=== PATIENT | female | born 1995 | race Caucasian/White ===

== ENCOUNTER 2018-08-25 00:13 | Emergency (ER) | payer MEDICAID ==
[~2018-08-25] VITALS: Ht 165.1 cm; Wt 108.4 kg
[~2018-08-25 00:13] MED LIST: ACHD5005 PO; DOCU100C37 PO; IBUP-1773 PO; LEVO150T PO; PNV91TAB3 PO
[2018-08-25 00:48] LABS: BILIRUBIN,URINE 3+ (NEGATIVE); CLARITY,URINE SLIGHTLY CLOUDY; COLOR,URINE AMBER; GLUCOSE, URINE (UA) NEGATIVE (NEGATIVE); KETONES,URINE NEGATIVE (NEGATIVE); LEUKOCYTE ESTERASE ,URINE 1+ (NEGATIVE); NITRITE,URINE NEGATIVE (NEGATIVE); PH,URINE 5 (5-9); PROTEIN,URINE 4+ (NEGATIVE); UROBILINOGEN,URINE 12 MG/DL (NORMAL)
[2018-08-25 01:00] LABS: BACTERIA,URINE MODERATE /HPF; RBC,URINE 0-2 /HPF; WBC,URINE 0-2 /HPF
[2018-08-25] MEDS ORDERED: LACTATED RINGERS 1,000 ML IV ONE (01:29)
[2018-08-25] MEDS ORDERED: KETOROLAC 30 MG/ML VIAL IVP STA (01:29)
[2018-08-25] MEDS ORDERED: ONDANSETRON 4 MG/2 ML (SDV) Z0FRAN IVP ONE (01:30)
[2018-08-25 01:49] LABS: BASOPHILS % (AUTO) 1 % (0-10); EOSINOPHILS # (AUTO) 0.1 10^3/uL (0.0-0.3); EOSINOPHILS % (AUTO) 2 % (0-10); HEMATOCRIT 41 % (35-52); HEMOGLOBIN 13.8 G/DL (11.5-16.0); LYMPHOCYTES % (AUTO) 17 % (12-44); MEAN CORPUSCULAR HEMOGLOBIN 29 PG (25-34); MEAN CORPUSCULAR HGB CONC 33 G/DL (32-36); MEAN CORPUSCULAR VOLUME 85 FL (80-99); MEAN PLATELET VOLUME 12.6 FL (7.4-10.4); MONOCYTES # (AUTO) 0.4 X 10^3 (0.0-1.0); MONOCYTES % (AUTO) 7 % (0-12); NEUTROPHILS # (AUTO) 4.3 X 10^3 (1.8-7.8); NEUTROPHILS % (AUTO) 74 % (42-75); PLATELET COUNT 225 10^3/uL (130-400); RED BLOOD COUNT 4.85 10^6/uL (4.35-5.85); RED CELL DISTRIBUTION WIDTH 13.8 % (10.0-14.5); WHITE BLOOD COUNT 5.9 10^3/uL (4.3-11.0)
[2018-08-25 02:00] VITALS: BP 112/89
[2018-08-25 02:13] LABS: ALANINE AMINOTRANSFERASE 1170 U/L (0-55); ALBUMIN 4.1 GM/DL (3.2-4.5); ALKALINE PHOSPHATASE 164 U/L (40-136); AMYLASE 33 U/L (25-125); BILIRUBIN,TOTAL 4.3 MG/DL (0.1-1.0); BUN/CREATININE RATIO 9; CALCIUM 9.2 MG/DL (8.5-10.1); CARBON DIOXIDE 23 MMOL/L (21-32); CHLORIDE 104 MMOL/L (98-107); CREATININE SERUM 0.77 MG/DL (0.60-1.30); GFR ESTIMATED > 60; GLUCOSE 95 MG/DL (70-105); LIPASE 20 U/L (8-78); POTASSIUM 3.6 MMOL/L (3.6-5.0); SODIUM 139 MMOL/L (135-145); TOTAL PROTEIN 7.1 GM/DL (6.4-8.2)
[2018-08-25] MEDS ORDERED: NS 100 ML (IVPB) BAG IV ONE (02:30)
[2018-08-25] MEDS ORDERED: RECEIVED CONTRAST (Hold Metformin) IV SCH (02:30)
[2018-08-25] MEDS ORDERED: IOHEXOL 350 MG/ML 100 ML (OMNIPAQUE 350) VIAL IV ONE (02:30)
[2018-08-25] MEDS ORDERED: fentaNYL INJECTION 100 MCG/2 ML AMP IVP STA (03:30)
[2018-08-25] MEDS ORDERED: PIPERACILLIN/TAZO 4.5 GM VIAL (ZOSYN) IV ONE (03:41)
[2018-08-25] MEDS ORDERED: PIPERACILLIN SODIUM/TAZOBACTAM 4.5 GM in NS (IVPB) 100 ML IV ONE (03:45)
[2018-08-25 04:06] VITALS: BP 135/91
--- NOTE | 2018-08-25 04:14 | ED Abdominal Pain ---
General Chief Complaint: Back Problems Stated Complaint: BACK PAIN Nursing Triage Note: lower back pain Sepsis Screen: No Definite Risk Source of Information: Patient Exam Limitations: No Limitations History of Present Illness Date Seen by Provider: Aug 25, 2018 Time Seen by Provider: 00:25 Initial Comments PT ARRIVES VIA POV FROM HOME PT STATES SHE BEGAN HAVING SEVERE EPIGASTRIC PAIN THAT RADIATED THROUGH TO HER BACK STATES TODAY, THE PAIN HAS BEEN MOSTLY IN HER MID BACK PAIN HAS BEEN CONSTANT DULL ACHE, BUT HAS BECOME SEVERE IN THE LAST 2 HOURS STATES SHE HAS BEEN SWEATING AND SHAKING DUE TO PAIN NOTHING WORSENS PAIN PAIN EASED A LITTLE WITH HEAT, ALSO TOOK 1 LEFT-OVER HYDROCODONE TONIGHT WHICH HELPED A LITTLE, THEN PAIN CAME BACK AND IS WORSE STATES SHE HAS BEEN DRINKING ALOT OF WATER, BUT SINCE YESTERDAY, HER URINE HAS BEEN VERY DARK AND DOES NOT THINK SHE IS URINATING MUCH NORMAL STATES SHE BEGAN HAVING NAUSEA/VOMITING--DRY HEAVES SINCE 0200 YESTERDAY STATES SHE HAS CONTINUED TO EAT, AND LAST ATE 1-2 HOURS AGO. HAS NOT CHECKED TEMP AT HOME NO DIARRHEA, HAS BEEN CONSTIPATED--HAD TINY BM YESTERDAY AND ANOTHER TINY BM TODAY. STATES SHE STARTED GOING TO THE GYM A COUPLE OF MONTHS AGO, BUT NO NEW ACTIVITIES, AND CONSISTS MOSTLY OF DOING TREADMILL. NO LIFTING, ETC. STATES SHE HAD A GASTRIC SLEEVE BARIATRIC SURGERY LAST DECEMBER 2017--WEIGHED 310 LBS AT THAT TIME. HAS LOST NEARLY 100 LBS SINCE THEN. PCP: DR. Clotilde BRYSON. LAST APPOINTMENT WAS 02/2018 Allergies and Home Medications Allergies Coded Allergies: No Known Drug Allergies (Unverified , 03/09/16) Home Medications Levothyroxine Sodium 150 Mcg Tablet, 150 MCG PO DAILY, (Reported) Pnv95/Ferrous Fumarate/FA 1 Each Tablet, 1 EACH PO DAILY, (Reported) Patient Home Medication List Home Medication List Reviewed: Yes Review of Systems Review of Systems Constitutional: see HPI; No chills; diaphoresis; No fever Respiratory: No Symptoms Reported Cardiovascular: No Symptoms Reported Gastrointestinal: See HPI, Abdominal Pain, Constipated, Nausea, Poor Appetite, Vomiting Genitourinary: See HPI, Flank Pain Musculoskeletal: see HPI, back pain Skin: no symptoms reported Psychiatric/Neurological: No Symptoms Reported Endocrine: No Symptoms Reported Hematologic/Lymphatic: No Symptoms Reported Past Zqjtimd-[id number]-Hkcqzs Hx Patient Social History Alcohol Use: Denies Use Recreational Drug Use: No Smoking Status: Never a Smoker Recent Foreign Travel: No Contact w/Someone Who Travel: No Recent Infectious Disease Expo: No Recent Hopitalizations: No Immunizations Up To Date Tetanus Booster (TDap): Unknown Seasonal Allergies Seasonal Allergies: No Past Medical History Surgeries: Yes (RIGHT ANKLE FX/ORIF; X 2; GASTRIC SLEEVE 12/2017; ORAL SURGERY) Abdominal, Appendectomy, Section, Orthopedic Respiratory: Yes (HX OF ASTHMA A CHILD) Asthma Cardiac: No Neurological: No : No Last Menstrual Period: Aug 12, 2018 Reproductive Disorders: No Female Reproductive Disorders: Denies Sexually Transmitted Disease: No HIV/AIDS: No Genitourinary: No Gastrointestinal: No Musculoskeletal: Yes (LOWER BACK PAIN) Chronic Back Pain Endocrine: Yes Hypothyroidsim Loss of Vision: Denies Cancer: No Psychosocial: Yes Depression Integumentary: Yes Eczema Blood Disorders: No Adverse Reaction/Blood Tranf: No (N/A) Family Medical History BREAST CANCER 19 MOTHER Diabetes mellitus 19 FATHER No Pertinent Family Hx Physical Exam Vital Signs Vital Signs - First Documented 08/25/18 00:20 Temp 98.0 Pulse 90 Resp 16 B/P (MAP) 147/110 (122) Pulse Ox 96 O2 Delivery Room Air Capillary Refill : Less Than 3 Seconds Height/Weight/BMI Height: 5'5.00" Weight: 239lbs. 0oz. 108.989726pm; 46.1 BMI Method:Stated General Appearance: no apparent distress, obese, other (TALKS NON-STOP AT LENGTH, SITTING TURKISH-STYLE) HEENT: PERRL/EOMI, normal ENT inspection; No scleral icterus (R), No scleral icterus (L) Neck: normal inspection Respiratory: normal breath sounds, no respiratory distress, no accessory muscle use Cardiovascular: no murmur Gastrointestinal: normal bowel sounds, soft, tenderness (MILD EPIGASTRIC TENDERNESS) Extremities: normal range of motion, non-tender, normal inspection, normal capillary refill Back: normal inspection, no CVA tenderness, no vertebral tenderness Neurologic/Psychiatric: combination machine tender II-XII nml as tested, no motor/sensory deficits, alert, normal mood/affect, oriented x 3 Skin: normal color, warm/dry Progress/Results/Core Measures Results/Orders Lab Results Laboratory Tests Test 08/25/18 00:30 08/25/18 01:40 Range/Units Urine Color NATALIE H Urine Clarity SLIGHTLY CLOUDY Urine pH 5 5-9 Urine Specific [place] 1.025 H 1.016-1.022 Urine Protein 4+ NEGATIVE Urine Glucose (UA) NEGATIVE NEGATIVE Urine Ketones NEGATIVE NEGATIVE Urine Nitrite NEGATIVE NEGATIVE Urine Bilirubin 3+ H NEGATIVE Urine Urobilinogen 12 H NORMAL MG/DL Urine Leukocyte Esterase 1+ H NEGATIVE Urine RBC (Auto) 1+ H NEGATIVE Urine RBC 0-2 /HPF Urine WBC 0-2 /HPF Urine Squamous Epithelial Cells 10-25 H /HPF Urine Crystals NONE /LPF Urine Bacteria MODERATE H /HPF Urine Casts NONE /LPF Urine Mucus NEGATIVE /LPF Urine Other /HPF Urine Culture Indicated NO White Blood Count 5.9 4.3-11.0 10^3/uL Red Blood Count 4.85 4.35-5.85 10^6/uL Hemoglobin 13.8 11.5-16.0 G/DL Hematocrit 41 35-52 % Mean Corpuscular Volume 85 80-99 FL Mean Corpuscular Hemoglobin 29 25-34 PG Mean Corpuscular Hemoglobin Concent 33 32-36 G/DL Red Cell Distribution Width 13.8 10.0-14.5 % Platelet Count 225 130-400 10^3/uL Mean Platelet Volume 12.6 H 7.4-10.4 FL Neutrophils (%) (Auto) 74 42-75 % Lymphocytes (%) (Auto) 17 12-44 % Monocytes (%) (Auto) 7 0-12 % Eosinophils (%) (Auto) 2 0-10 % Basophils (%) (Auto) 1 0-10 % Neutrophils # (Auto) 4.3 1.8-7.8 X 10^3 Lymphocytes # (Auto) 1.0 1.0-4.0 X 10^3 Monocytes # (Auto) 0.4 0.0-1.0 X 10^3 Eosinophils # (Auto) 0.1 0.0-0.3 10^3/uL Basophils # (Auto) 0.0 0.0-0.1 10^3/uL Sodium Level 139 135-145 MMOL/L Potassium Level 3.6 3.6-5.0 MMOL/L Chloride Level 104 98-107 MMOL/L Carbon Dioxide Level 23 21-32 MMOL/L Anion Gap 12 5-14 MMOL/L Blood Urea Nitrogen 7 7-18 MG/DL Creatinine 0.77 0.60-1.30 MG/DL Estimat Glomerular Filtration Rate > 60 BUN/Creatinine Ratio 9 Glucose Level 95 70-105 MG/DL Calcium Level 9.2 8.5-10.1 MG/DL Corrected Calcium 9.1 8.5-10.1 MG/DL Total Bilirubin 4.3 H 0.1-1.0 MG/DL Aspartate Amino Transf (AST/SGOT) 913 H 5-34 U/L Alanine Aminotransferase (ALT/SGPT) 1170 H 0-55 U/L Alkaline Phosphatase 164 H 40-136 U/L Total Protein 7.1 6.4-8.2 GM/DL Albumin 4.1 3.2-4.5 GM/DL Amylase Level 33 25-125 U/L Lipase 20 8-78 U/L My Orders Orders - JORGE ALBERTO WALTERS DO Urine Bedside (08/25/18 00:28) Ua Culture If Indicated (08/25/18 00:28) Saline Lock/Iv-Start (08/25/18 01:29) Ct Abd/Pelv W (Appendicitis) (08/25/18 01:29) Amylase (08/25/18 01:29) Cbc With Automated Diff (08/25/18 01:29) Comprehensive Metabolic Panel (08/25/18 01:29) Lipase (08/25/18 01:29) Acute Abd Series (08/25/18 01:29) Ondansetron Injection (Zofran Injectio (08/25/18 01:30) Saline Lock/Iv-Start (08/25/18 01:29) Lactated Ringers (Lr 1000 Ml Iv Solution (08/25/18 01:29) Ketorolac Injection (Toradol Injection) (08/25/18 01:29) Iohexol Injection (Omnipaque 350 Mg/Ml 1 (08/25/18 02:30) Contrast Received (Contrast Received) (08/25/18 02:30) Ns (Ivpb) (Sodium Chloride 0.9% Ivpb Bag (08/25/18 02:30) Fentanyl Injection (Sublimaze Injection (08/25/18 03:30) Piperacillin Sodium/Tazobactam (Zosyn Vi (08/25/18 03:45) Piperacillin Sodium/Tazobactam (Zosyn Vi (08/25/18 03:41) Medications Given in ED Current Medications Medications Dose Ordered Sig/Angel Route Start Time Stop Time Status Last Admin Dose Admin Iohexol 100 ml ONCE ONCE IV 08/25/18 02:30 08/25/18 02:31 DC 08/25/18 02:24 100 ML Lactated Ringer's 1,000 ml @ 0 mls/hr Q0M ONCE IV 08/25/18 01:29 08/25/18 01:32 DC 08/25/18 01:41 0 MLS/HR Ondansetron HCl 4 mg ONCE ONCE IVP 08/25/18 01:30 08/25/18 01:32 DC 08/25/18 01:41 4 MG Piperacillin Sod/ Tazobactam Sod 4.5 gm/Sodium Chloride 100 ml @ 200 mls/hr ONCE ONCE IV 08/25/18 03:45 08/25/18 04:14 UNV 08/25/18 03:46 200 MLS/HR Sodium Chloride 100 ml ONCE ONCE IV 08/25/18 02:30 08/25/18 02:31 DC 08/25/18 02:24 80 ML Vital Signs/I&O 08/25/18 08/25/18 08/25/18 08/25/18 00:20 01:41 02:00 03:35 Temp 98.0 98.0 97.1 98.0 Pulse 90 71 Resp 16 16 B/P (MAP) 147/110 (122) 112/89 (97) Pulse Ox 96 98 O2 Delivery Room Air Room Air 08/25/18 04:06 Temp 97.6 Pulse 60 Resp 16 B/P (MAP) 135/91 (106) Pulse Ox 97 O2 Delivery Room Air Blood Pressure Mean: 106 Urine -Bedside: Negative Progress Progress Note : Progress Note PAIN AND NAUSEA EASED WITH MEDICATIONS NO DETERIORATION IN PT'S CONDITION DURING ER STAY VITALS REMAINED STABLE Diagnostic Imaging Comments ACUTE ABDOMEN XRAYS--NO ACUTE PROCESS, PENDING RADIOLOGIST REVIEW CT ABDOMEN/PELVIS--DISTENTION OF GALLBLADDER, WITH DILATED CBD TO 8 MM. NO BOWEL OBSTRUCTION, POST GASTRIC SLEEVE PROCEDURE. THICK WALLED BLADDER WALL. PER STAT RAD VIA FAX @ 7300 Reviewed: Reviewed by Fl Departure Communication (Admissions) [id number]--SPOKE WITH DR. HENSLEY, GENERAL [employer]GE[employer]. HE ADVISES TRANSFER FOR ERCP, THEN PT CAN BE TRANSFERRED BACK HERE FOR CHOLECYSTECTOMY. 313---CALLED G[facility]Y --ON [facility] 315--CALLED FARIDEH RAMESH. WILL CONTACT GI AND CALL BACK. 333--GI HAS NOT CALLED BACK. WILL CONTACT HOSPITALIST 337--SPOKE WITH DR. POWERS, ACCEPTS PT FOR ADMIT. ADVISES ANTIBIOTICS PRIOR TO TRANSFER. Impression Primary Impression: Cholelithiasis with acute cholecystitis with biliary obstruction Disposition: XFER [facility] Condition: Improved Transfer Method of Transfer: EMS Departure-Patient Inst. Referrals: DAVI BRYSON MD (PCP/Family) Primary Care Physician JORGE ALBERTO WALTERS DO Aug 25, 2018 04:14
[2018-08-25 04:35] VITALS: BP 113/63
--- NOTE | 2018-08-25 07:16 | Diagnostic Imaging Report ---
PROCEDURE: CT abdomen and pelvis with contrast, rule out appendicitis. TECHNIQUE: Multiple contiguous axial images were obtained through the abdomen and pelvis after the administration of intravenous contrast. INDICATION: Low back pain. FINDINGS: The heart size is normal. The lung bases are clear. The liver is normal in size without focal lesions. There is no intrahepatic biliary ductal dilatation. There may be minimal distention of the gallbladder. Spleen is normal. The pancreas and adrenal glands are unremarkable. Kidneys are normal in appearance. The aorta is nonaneurysmal. Bowel gas pattern is nonspecific. There are postsurgical changes of a gastric sleeve procedure. There is no free air. There is no ascites. There are no focal inflammatory changes. Bladder is not well-distended, however appears thickwalled. The osseous structures are unremarkable. IMPRESSION: Questionable mild distention of the gallbladder. Recommend clinical correlation and if warranted followup with right upper quadrant ultrasound. The urinary bladder is not well-distended, however regardless appears thickwalled. Recommend clinical correlation for cystitis. No other acute abnormality in the abdomen or pelvis. Dictated by: Dictated on workstation # [id number]
--- NOTE | 2018-08-25 08:00 | Diagnostic Imaging Report ---
INDICATION: Low back pain x3 days. TECHNIQUE: Single view chest with supine and upright radiographs of the abdomen. CORRELATION STUDY: None FINDINGS: Frontal radiograph of the chest demonstrates no acute abnormality. Surgical changes in the left upper quadrant are present with suture line. Bowel gas pattern has an unremarkable appearance. A few air-fluid levels are noted, no evidence to suggest a high degree bowel obstruction. Gas to the level of the rectum. No evidence for large fecal impaction. IMPRESSION: 1. Negative for acute cardiopulmonary abnormality. 2. Unremarkable appearing bowel gas pattern. Dictated by: Dictated on workstation # [id number]
== END 2018-08-25 04:40 | disposition short-term general hospital (02) ==
LOC: EDUNIT# 00:13 → ER 00:16
DX: K80.63 Calculus of gallbladder and bile duct with acute cholecystitis with obstruction (principal); J45.909 Unspecified asthma, uncomplicated; E03.9 Hypothyroidism, unspecified; Z80.3 Family history of malignant neoplasm of breast; Z98.84 Bariatric surgery status; Z98.890 Other specified postprocedural states; Z90.49 Acquired absence of other specified parts of digestive tract
CPT/HCPCS: 36415; 74022; 74177; 80053; 81000; 82150; 83690; 84703; 85025; 96361; 96365; 96375